=== PATIENT | female | born 1990 | race Caucasian/White ===

== ENCOUNTER 2023-01-19 05:23 | Emergency (ER) | payer SELFPAY ==
[2023-01-19 05:36] VITALS: BP 125/88; PULSE 66; RESP 20; TEMP 37.4; O2SAT 98
--- NOTE | 2023-01-19 05:52 | ED.GENADULT ---
HPI - General Adult General Chief complaint: Nausea/Vomiting/Diarrhea Stated complaint: throwing up for days, cant keep food down Time Seen by Provider: 01/19/23 05:40 History of Present Illness HPI narrative: Patient is a 32-year-old female who presents the emergency department with chief complaint of nausea and vomiting and dehydration. The patient reports that on Tuesday she ate some cookie dough and reports that since then she initially had some diarrhea and then has had nausea and vomiting patient reports she has been unable to keep anything down reports she is really not having any abdominal pain the patient reports that there is no chance that she could be and does not want a test done. Patient reports she is not really having any significant abdominal pain with this Related Data Allergies Allergy/AdvReac Type Severity Reaction Status Date / Time No Known Allergies Allergy Verified 01/19/23 05:30 Review of Systems Review of Systems: A 10 system review of systems was completed on the patient and is negative except for what is stated in the HPI. Nursing and ancillary documentation was reviewed. Exam Narrative: GENERAL: Well-appearing, well-nourished, and in no acute distress. HEAD: Normocephalic, atraumatic. EYES: PERRLA and EOMI. ENT: Nares clear, no rhinorrhea or epistaxis. Dry mucous membranes. NECK: Supple. CHEST: Clear to auscultation. No respiratory distress. HEART: Regular rate and rhythm. No murmur heard. Normal peripheral pulses. ABDOMEN: Soft, nontender, nondistended, normal active bowel sounds. EXTREMITIES: Normal range of motion. No edema. SKIN: Warm, dry, no rash. NEURO: No focal deficits. Alert and oriented x3. PSYCH: Normal mood and affect. Course Vital Signs Vital signs: Vital Signs Temperature 37.4 C 01/19/23 05:36 Pulse Rate 66 01/19/23 05:36 Respiratory Rate 20 01/19/23 05:36 Blood Pressure 125/88 01/19/23 05:36 Pulse Oximetry 98 01/19/23 05:36 Oxygen Delivery Room Air 01/19/23 05:36 Temperature 37.4 C 01/19/23 05:36 Pulse Rate 52 L 01/19/23 06:38 Respiratory Rate 18 01/19/23 06:38 Blood Pressure 146/94 H 01/19/23 06:38 Pulse Oximetry 100 01/19/23 06:38 Oxygen Delivery Room Air 01/19/23 05:36 Medical Decision Making [facility] Narrative Medical decision making narrative: Differential diagnosis includes gastroenteritis, dehydration, Laboratory studies reveal patient with a white count of 13.9 electrolytes were within normal limits Patient received 2 L normal saline and received antiemetics in the ER patient is feeling much better at this time and would like to go home Vital Signs Vital Signs: Vital Signs Temperature 37.4 C 01/19/23 05:36 Pulse Rate 66 01/19/23 05:36 Respiratory Rate 20 01/19/23 05:36 Blood Pressure 125/88 01/19/23 05:36 Pulse Oximetry 98 01/19/23 05:36 Oxygen Delivery Room Air 01/19/23 05:36 Temperature 37.4 C 01/19/23 05:36 Pulse Rate 52 L 01/19/23 06:38 Respiratory Rate 18 01/19/23 06:38 Blood Pressure 146/94 H 01/19/23 06:38 Pulse Oximetry 100 01/19/23 06:38 Oxygen Delivery Room Air 01/19/23 05:36 Lab Data 01/19/23 05:47 01/19/23 05:47 Labs: Lab Results 01/19/23 Range/Units 05:47 WBC 13.9 H (4.5-10.0) K/mm3 RBC 4.94 (4.2-5.4) M/mm3 Hgb 14.6 (12.0-15.0) g/dL Hct 43.3 (37.0-47.0) % MCV 87.7 (80-100) fl MCH 29.6 (26-34) pg MCHC 33.7 (32-36) g/dl RDW 12.3 (11.5-14.5) % Plt Count 289 (150-375) k/mm3 MPV 9.5 (7.4-10.4) fl Immature Gran % (Auto) 0.5 (0-0.5) % Neut % (Auto) 77.5 H (45.5-73.1) % Lymph % (Auto) 13.7 L (18.3-44.2) % [place]t % (Auto) 8.1 (2.6-8.5) % Eos % (Auto) 0.0 (0-4.4) % Baso % (Auto) 0.2 (0.2-1.2) % Lymph # (Auto) 1.91 (0.9-3.2) K/mm3 [place]t # (Auto) 1.1 H (0.1-0.6) K/mm3 Eos # (Auto) 0.0 (0-0.3) K/mm3 Baso # (Auto) 0.0 (0.0-0.1)
[2023-01-19 05:55] LABS: Basophils Percent Auto 0.2 % (0.2-1.2); Hematocrit 43.3 % (37.0-47.0); Hemoglobin 14.6 g/dL (12.0-15.0); Immature Granulocyte Absolute 0.07 K/mm3 (0.00-0.031); Immature Granulocyte Percent A 0.5 % (0-0.5); Lymphocytes Absolute Auto 1.91 K/mm3 (0.9-3.2); Lymphocytes Percent Auto 13.7 % (18.3-44.2); Mean Corpuscular HGB Conc 33.7 g/dl (32-36); Mean Corpuscular Hemoglobin 29.6 pg (26-34); Mean Corpuscular Volume 87.7 fl (80-100); Mean Platelet Volume 9.5 fl (7.4-10.4); Monocytes Absolute Auto 1.1 K/mm3 (0.1-0.6); Monocytes Percent Auto 8.1 % (2.6-8.5); Neutrophils Absolute Auto 10.8 K/mm3 (1.3-6.7); Neutrophils Percent Auto 77.5 % (45.5-73.1); Platelet Count Result 289 k/mm3 (150-375); Red Blood Count 4.94 M/mm3 (4.2-5.4); Red Cell Distribution Width 12.3 % (11.5-14.5); White Blood Count 13.9 K/mm3 (4.5-10.0)
[2023-01-19] MEDS: ONDANSETRON INJ 4 MG/2 ML VIAL IV PUSH (06:01)
[2023-01-19] MEDS: SODIUM CHLORIDE 0.9% IV 1,000 ML 999 ML IV CONT ×2 (06:01)
[2023-01-19 06:07] LABS: Alanine Aminotransferase 29 U/L (6-35); Albumin Level 4.7 g/dL (3.5-5.1); Alkaline Phosphatase 62 U/L (38-126); Anion Gap 13 mmol/L (8-16); Aspartate Amino Transferase 26 U/L (14-36); Bilirubin,Total 0.8 mg/dL (0.2-1.3); Blood Urea Nitrogen 18 mg/dL (7-17); Calcium 9.2 mg/dL (8.4-10.2); Carbon Dioxide 22 mmol/L (22-30); Chloride 102 mmol/L (98-107); Estimated CRCL calculation 79 ml/min; Estimated Glomerular Filt Rate > 60; Glucose 123 mg/dL (65-110); Lipase 87 U/L (23-300); Potassium 3.3 mmol/L (3.4-5.0); Sodium 137 mmol/L (137-145)
[2023-01-19 06:38] VITALS: BP 146/94; PULSE 52; RESP 18; O2SAT 100
[2023-01-19] MEDS: PANTOPRAZOLE SODIUM IV 40 MG VIAL IV PUSH (06:38)
[2023-01-19] MEDS: PROCHLORPERAZINE EDISYLATE 10 MG/2 ML VIAL IV PUSH (06:38)
== END 2023-01-19 07:22 | disposition home or self-care (01) ==
PROVIDERS: Emergency Provider Emergency Medicine
DX: R11.2 Nausea with vomiting, unspecified (principal)
CPT/HCPCS: 36415; 80053; 83690; 85025; 96361; 96374; 96375; 99284; C9113; J0780; J2405; J7030